=== PATIENT | male | born 1955 | race African-American/Black ===

== ENCOUNTER 2016-09-06 20:45 | Emergency (ER) | payer BC, OTHER ==
[~2016-09-06] VITALS: Ht 167.6 cm; Wt 145.0 kg
[2016-09-06 20:53] VITALS: Ht 167.6 cm; Wt 145.0 kg
[2016-09-06] MEDS ORDERED: KETOROLAC 60 MG INJ IM STA (22:49)
[2016-09-06] MEDS ORDERED: HYDROCODONE/APAP (10/325) TAB PO ONE (23:00)
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
[2016-09-07] MEDS ORDERED: IBUP-1542 PO (00:02)
[2016-09-07] MEDS ORDERED: CYCL-319 PO (00:02)
[2016-09-07] MEDS ORDERED: HYDR-906 PO (00:02)
[2016-09-07 00:34] VITALS: BP 135/84; PULSE 65; RESP 20; TEMP 98.3
== END 2016-09-07 00:15 | disposition home or self-care (01) ==
LOC: FTE 20:45
DX: S16.1XXA Strain of muscle, fascia and tendon at neck level, initial encounter (principal); F17.210 Nicotine dependence, cigarettes, uncomplicated; V43.62XA Car passenger injured in collision with other type car in traffic accident, initial encounter
CPT/HCPCS: 72040; Z7610